=== PATIENT | male | born 1985 | race Caucasian/White ===

== ENCOUNTER 2018-09-23 21:22 | Emergency (ER) | payer BC, OTHER ==
[2018-09-23 21:45] VITALS: BP 157/96
--- NOTE | 2018-09-23 22:14 | UC ---
Lower Extremity/Ankle HPI - HPI Summary HPI Summary: 32 year old male presents with injury to his right foot and ankle. States he was playing soccer prior to arrival and he and another player accidentally kick each other. Complains of pain to the medial aspect of his right dorsal foot. He was able to bear weight immediately after the injury and in the clinic but with a lot of discomfort. Denies numbness or tingling. - History of Current Complaint Chief Complaint: UCLowerExtremity Stated Complaint: RT FOOT INJURY Time Seen by Provider: 09/23/18 22:06 Hx Obtained From: Patient Pain Intensity: 9 - Allergies/Home Medications Allergies/Adverse Reactions: Allergies Allergy/AdvReac Type Severity Reaction Status Date / Time No Known Allergies Allergy Verified 09/23/18 21:46 Home Medications: Home Medications NK [No Home Medications Reported] 09/23/18 [History Confirmed 09/23/18] PMH/Surg Hx/FS Hx/Imm Hx Previously Healthy: Yes - Denies significant PMH - Surgical History Surgical History: Yes Surgery Procedure, Year, and Place: oral surgery - Family History Known Family History: Positive: Non-Contributory - Social History Occupation: Employed Full-time Lives: With Family Alcohol Use: Weekly Substance Use Type: None Smoking Status (MU): Never Smoked Tobacco Review of Systems All Other Systems Reviewed And Are Negative: Yes Skin: Negative: Bruising Respiratory: Positive: Negative Cardiovascular: Positive: Negative Gastrointestinal: Positive: Negative Genitourinary: Positive: Negative Motor: Negative: Weakness Neurovascular: Negative: Decreased Sensation Musculoskeletal: Positive: Other: - See HPI Neurological: Positive: Negative Is Patient Immunocompromised?: No Physical Exam - Summary Physical Exam Summary: GENERAL APPEARANCE: Well developed, well nourished, alert and cooperative, and appears to be in no acute distress. CARDIAC: Normal S1 and S2. No S3, S4 or murmurs. Rhythm is regular. There is no peripheral edema, cyanosis or pallor. Extremities are warm and well perfused. Capillary refill is less than 2 seconds. Peripheral pulses intact. LUNGS: Clear to auscultation without rales, rhonchi, wheezing or diminished breath sounds. ABDOMEN: Positive bowel sounds. Soft, nondistended, nontender. No guarding or rebound. No masses or hepatosplenomegally. MUSKULOSKELETAL: Normal muscular development. Limping gait. EXTREMITIES: Tenderness over the the dorsal, medial aspect of the right forefoot near the proximal 1st metatarsal without erythema, ecchymosis, edema, or gross deformity. Circulation and sensation intact. SKIN: Skin normal color, texture and turgor with no lesions or eruptions. Triage Information Reviewed: Yes Vital Signs: Initial Vital Signs Temp 98.7 F 09/23/18 21:43 Pulse 104 09/23/18 21:43 Resp 20 09/23/18 21:43 BP 157/96 09/23/18 21:43 Pulse Ox 96 09/23/18 21:43 Vital Signs Reviewed: Yes Diagnostics - Radiology No standard instances Radiology Interpretation Completed By: ED Physician - Possible fracture of the 1st metataral of the right foot Lower Extremity Course/Dx - Course Course Of Treatment: 32 year old male presents with injury to his right foot and ankle. States he was playing soccer prior to arrival and he and another player accidentally kick each other. Complains of pain to the medial aspect of his right dorsal foot. He was able to bear weight immediately after the injury and in the clinic but with a lot of discomfort. Denies numbness or tingling. Afebrile. VSS. Exam revealed tenderness over the the dorsal, medial aspect of the right forefoot near the proximal 1st metatarsal without erythema, ecchymosis, edema, or gross deformity. Circulation and sensation intact. X-ray showed a possible fracture at the base of the 1st metatarsal. Patient was placed in a CAM boot by the RN. Circulation and sensation were intact pre- and post-application. He was provided crutches and counseled to remain non-weightbearing at this time. Will treat conservatively for a possible fracture of the 1st metatarsal of the right foot including OTC analgesics and RICE. He is to follow up with orthopedic surgery in 3-5 days. Anticipatory guidance and warning symptoms were reviewed with the patient. Verbalizes understanding and agrees with POC. - Differential Dx/Diagnosis Differential Diagnosis/HQI/PQRI: Contusion, Dislocation, Fracture (Closed), Sprain Provider Diagnosis: Fracture of first metatarsal bone of right foot Discharge - Sign-Out/Discharge Documenting (check all that apply): Patient Departure All imaging exams completed and their final reports reviewed: No - Discharge Plan Condition: Stable Disposition: HOME Patient Education Materials: Crutch Instructions (ED), Foot Fracture in Adults (ED) Referrals: No Primary Care Phys,NOPCP [Primary Care Provider] - Darrian Smith MD [Medical Doctor] - 3 Days (Call tomorrow for an appointment.) Additional Instructions: The x-ray performed in the clinic today showed a possible fracture at the base of the first metatarsal bone of the right foot. The x-ray will be reviewed by the radiologist tomorrow and we will contact you if they see anything that may change your plan of care. Rest the foot as much as possible. Remain non-weight bearing until you have been evaluated by the orthopedic surgeon. Use the crutches provided. Wear the CAM boot that was applied in the clinic today. You may remove to sleep and shower but should wear at all other times. Apply ice to the affected area for 15-20 minutes at least 4 times a day to help with the pain and swelling. Elevate the foot to help reduce swelling. Take acetaminophen (Tylenol) or ibuprofen (Advil, Motrin) according to directions as needed for pain. Follow up with orthopedic surgery in 3-5 days if symptoms do not improve. Seek immediate medical attention if you have severe pain not managed with pain medication, you are unable to walk or bear any weight, the foot becomes pale or blue and you have numbness or tingling in the foot or toes, or have any worsening of symptoms. - Billing Disposition and Condition Condition: STABLE Disposition: Home
--- NOTE | 2018-09-24 12:41 | UC ---
- Progress Note Progress Note: Final x-ray reading reviewed. IMPRESSION: Question fracture base of the first metatarsal. Soft tissue swelling is noted medially. Consistent with preliminary reading. No change in POC. Course/Dx - Diagnoses Provider Diagnoses: Fracture of first metatarsal bone of right foot Discharge - Sign-Out/Discharge Documenting (check all that apply): Post-Discharge Follow Up All imaging exams completed and their final reports reviewed: Yes - Discharge Plan Condition: Stable Disposition: HOME Patient Education Materials: Crutch Instructions (ED), Foot Fracture in Adults (ED) Referrals: Darrian Smith MD [Medical Doctor] - 3 Days (Call tomorrow for an appointment.) No Primary Care Phys,NOPCP [Primary Care Provider] - Additional Instructions: The x-ray performed in the clinic today showed a possible fracture at the base of the first metatarsal bone of the right foot. The x-ray will be reviewed by the radiologist tomorrow and we will contact you if they see anything that may change your plan of care. Rest the foot as much as possible. Remain non-weight bearing until you have been evaluated by the orthopedic surgeon. Use the crutches provided. Wear the CAM boot that was applied in the clinic today. You may remove to sleep and shower but should wear at all other times. Apply ice to the affected area for 15-20 minutes at least 4 times a day to help with the pain and swelling. Elevate the foot to help reduce swelling. Take acetaminophen (Tylenol) or ibuprofen (Advil, Motrin) according to directions as needed for pain. Follow up with orthopedic surgery in 3-5 days if symptoms do not improve. Seek immediate medical attention if you have severe pain not managed with pain medication, you are unable to walk or bear any weight, the foot becomes pale or blue and you have numbness or tingling in the foot or toes, or have any worsening of symptoms. - Billing Disposition and Condition Condition: STABLE Disposition: Home
== END 2018-09-23 22:31 | disposition home or self-care (01) ==
LOC: UCCORT 21:22
DX: S99.921A Unspecified injury of right foot, initial encounter (principal); W50.0XXA Accidental hit or strike by another person, initial encounter; Y93.66 Activity, soccer; Y92.9 Unspecified place or not applicable
CPT/HCPCS: 28470; 99203; G0463